=== PATIENT | male | born 1995 | race American Indian/Alaskan Native ===

== ENCOUNTER 2017-01-30 14:44 | Emergency (ER) | payer MEDICAID ==
[2017-01-30] MEDS ORDERED: AMOXICILLIN/POTASSIUM CLAV 875MG/125MG TABLET PO ONE (15:28)
--- NOTE | 2017-01-30 15:28 | Emergency Department Record ---
History of Present Illness - General Chief Complaint: Laceration(s) Stated Complaint: LACERATION ON RIGHT FOOT Time Seen by Provider: 01/30/17 15:23 Source: Patient Mode of Arrival: Ambulatory Limitations: No limitations - History of Present Illness Initial Commments: 21 yo male presents after stepping on nails that were in a piece of wood. The nails when through his boot near the toe end. He is up to date on tetanus. No other injury. Onset/Timin -: Hour(s) Extremity Location: Right: Foot Place: Work Context: Accidental Associated Symptoms: None Treatments Prior to Arrival: Other (none) - [place] Coma Scale Eye Response: (4) Open spontaneously Motor Response: (6) Obeys commands Verbal Response: (5) Oriented [place] Total: 15 - Related Data Patient Tetanus UTD (within 5 yrs): Yes Previous Rx's Medication Instructions Recorded Amoxicillin/Potassium Clav 1 tab PO BID #14 tab 01/30/17 [Augmentin 875-125 Tablet] Allergies Allergy/AdvReac Type Severity Reaction Status Date / Time amphetamine aspartate Allergy RASH Verified 01/30/17 15:04 [From Adderall] amphetamine sulfate Allergy RASH Verified 01/30/17 15:04 [From Adderall] dextroamphetamine saccharate Allergy RASH Verified 01/30/17 15:04 [From Adderall] dextroamphetamine sulfate Allergy RASH Verified 01/30/17 15:04 [From Adderall] Travel Screening - Travel/Exposure Within Last 30 Days Have you traveled within the last 30 days?: No - Travel/Exposure Within Last Year Have you traveled outside the [place] in the last year?: No - Additonal Travel Details Have you been exposed to anyone with a communicable illness?: No - Travel Symptoms Symptom Screening: None Review of Systems Constitutional: Denies: Chills, Fever, Malaise, Weakness Eyes: Denies: Eye discharge ENT: Denies: Congestion, Throat pain Respiratory: Denies: Cough Cardiovascular: Denies: Chest pain Endocrine: Denies: Fatigue Gastrointestinal: Denies: Abdominal pain, Nausea, Vomiting Genitourinary: Denies: Dysuria, Frequency, Hematuria Musculoskeletal: Reports: As per HPI, Arthralgia Skin: Reports: Other (Puncture). Denies: Bruising, Change in color, Rash Neurological: Denies: Headache Psychiatric: Denies: Anxiety Hematological/Lymphatic: Denies: Blood Clots, Easy bleeding, Easy bruising, Swollen glands Past Medical History - SOCIAL HISTORY Smoking Status: Current every day smoker Alcohol Use: None Drug Use: None - RESPIRATORY Hx Respiratory Disorders: Yes Hx Asthma: Yes - CARDIOVASCULAR Hx Cardio Disorders: No - NEURO Hx Neuro Disorders: No - GI Hx GI Disorders: No - Hx Genitourinary Disorders: No - ENDOCRINE Hx Endocrine Disorders: No - MUSCULOSKELETAL Hx Musculoskeletal Disorders: No - PSYCH Hx Psych Problems: No Hx Anxiety: Yes Hx Depression: Yes - HEMATOLOGY/ONCOLOGY Hx Hematology/Oncology Disorders: No Family Medical History Any Significant Family History?: Yes Hx Alcohol Use: Father, Mother Hx Anxiety: Father, Mother Hx Cancer: Mother Hx Depression: Father, Mother Hx Diabetes: Father, Mother, Grandparents Hx Heart Disease: Father, Mother, Grandparents Hx HTN: Father, Mother, Grandparents Hx Kidney Disease: Grandparents Hx Liver Disease: Grandparents Hx Resp Disorders: Father, Mother, Grandparents Hx Seizures: Mother, Grandparents Hx Stroke: Mother, Grandparents Physical Exam - General General Appearance: Alert, Oriented x3, Cooperative, No acute distress Limitations: No limitations - Head Head exam: Normal inspection - Eye Eye exam: Normal appearance. negative: Conjunctival injection, Periorbital swelling, Scleral icterus - ENT ENT exam: Normal exam Ear exam: Normal external inspection Nasal Exam: Normal inspection Mouth exam: Normal external inspection - Neck Neck exam: Normal inspection - Cardiovascular Peripheral Pulses: 2+: Dorsalis Pedis (R) - Rectal Rectal exam: Deferred - exam: Deferred - Extremities Extremities exam: negative: Normal inspection (Puncture RT foot) Image of Feet: 1 - puncture site 2 - puncture site - Neurological Neurological exam: Alert, Oriented X3 - Psychiatric Psychiatric exam: Normal affect, Normal mood - Skin Skin exam: Dry, Intact, Normal color, Warm Course Vital Signs 01/30/17 14:57 Temperature 97.8 F Pulse Rate 87 Respiratory 16 Rate Blood Pressure 120/102 Pulse Ox 98 - Reevaluation(s) Reevaluation #1: The foot was soak and thoroughly cleaned We discussed high risks for infection of foot punctures and recommendation for XR and I and D with irrigation of the wounds XR ordered and antibiotics ordered Tetanus is up to date 01/30/17 15:29 Reevaluation #2: The XR was negative for acute injury or FB The wounds were again cleaned Betadine prep used, Lidocaine 1% used The wounds were opened and irrigated with small core area removed in the event of needed drainage or retained FB No debris or FB seen during the procedure or irrigation 01/30/17 16:32 Disposition Disposition: Discharge Clinical Impression: Puncture procedure Disposition: Home, Self-Care Condition: (1) Good Instructions: Puncture Wound (ED) Additional Instructions: Soak in warm water and soap twice daily Keep open and out of shoes the next 2 days Elevate Return if warm, red, pus or concerns Prescriptions: Amoxicillin/Potassium Clav [Augmentin 875-125 Tablet] 1 tab PO BID #14 tab Forms: Patient Portal Access Time of Disposition: 16:34 Quality - Quality Measures Quality Measures: N/A - Blood Pressure Screening Does Patient Have Any of the Following: No Blood Pressure Classification: Hypertensive Reading Systolic Measurement: 120 Diastolic Measurement: 102 Screening for High Blood Pressure: < Pre-Hypertensive BP, F/U Documented > [ [id number]] Pre-Hypertensive Follow-up Interventions: Referral to alternative/primary care provider.
[2017-01-30] MEDS ORDERED: HYDROCODONE/APAP 7.5/325MG TABLET PO ONE (15:39)
--- NOTE | 2017-02-01 07:04 | RADIOLOGY REPORT ---
EXAM: RIGHT FOOT, THREE VIEWS HISTORY: PATIENT STEPPED ON NAIL WITH PUNCTURE WOUND AT THE PLANTAR PROXIMAL LATERAL ASPECT OF THE GREAT TOE. TECHNIQUE: Three views of the right foot were obtained. Comparison: None. FINDINGS: There is normal bone mineralization. No fracture, dislocation, or destructive bone lesion is seen. The articular relations are maintained. No radiopaque foreign body identified. IMPRESSION: NO ACUTE BONE NOR JOINT ABNORMALITY. NO RADIOPAQUE FOREIGN BODY VISUALIZED. JOB NUMBER: [id number] MTDD
== END 2017-01-30 16:39 | disposition home or self-care (01) ==
LOC: ER 14:44
DX: S91.331A Puncture wound without foreign body, right foot, initial encounter (principal); W45.0XXA Nail entering through skin, initial encounter; Y99.0 Civilian activity done for income or pay
CPT/HCPCS: 99283; 99284